=== PATIENT | female | born 2005 | race Caucasian/White ===

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

== ENCOUNTER 2025-01-20 15:40 | Emergency (ER) | payer OTHER, SELFPAY ==
[2025-01-20 15:40] VITALS: BP 108/56; PULSE 86; RESP 16; TEMP 36.3; O2SAT 98
--- OUTSIDE RECORDS SUMMARY | 2025-01-20 15:49 | XMS_ITS | Clinical Summary ---
Author Organization [facility] Address [address] [place] [id number] Care Team Providers Care Eyeglass Frame Truer Name Role Phone New Referring, Provider Primary Care Provider Un available Allergies Active Allergy Reactions Criticality Noted Date Comments Clindamycin Unknown 09/21/2021 Penicillins Swelling Medium 02/21/2022 Medications No known medications Active Problems Problem Noted Date Diagnosed Date Rupture of anterior cruciate ligament of left knee, initial encounter 10/27/2020 Patellar subluxation, left, initial encounter Family History Medical History Relation Comments No Known Problems Father No Known Problems Maternal Grandfather Cancer Maternal Grandmother No Known Problems Paternal Grandfather No Known Problems Paternal Grandmother Heart Disease Sister Relation Status Comments Father Alive Maternal Grandfather Maternal Grandmother Alive Mother Alive Paternal Grandfather Paternal Grandmother Sister Social History Tobacco Use Types Packs/Day Years Used Date Smoking Tobacco: Never Smokeless Tobacco: Never Alcohol Use Standard Drinks/Week Comments Never 0 (1 standard drink = 0.6 oz pur e alcohol) AUDIT-C Answer Date Recorded Q1: How often do you have a drink containing alc ohol? Never 10/27/2020 Average Number of Drinks Not on file 021 Frequency of Binge Drinking Not on file 10/07 Comments No Sex and Gender Information Value Date Recorded Sex Assigned at Not on file Legal Sex Female 10:28 AM CDT Gender Identity Not on file Sexual Orientation Not on file Last Filed Vital Signs Vital Sign Reading Time Taken Comments Blood Pressure 99/64 12/13/2022 4:50 AM CDT Pulse 72 12/13/2022 2:19 AM CDT Temperature 36.7 C (98 F) 12/13/2022 1:18 AM CDT Respiratory Rate 16 12/13/2022 1:18 AM CDT Oxygen Saturation 99% 12/13/2022 4:50 AM CDT Inhaled Oxygen Concentration - - Weight 63.3 kg (139 lb 8.8 oz) 12/13/2022 1:18 A M CDT Height 152.4 cm (5') 12/13/2022 1:18 AM CDT Body Mass Index 27.25 12/13/2022 1:18 AM CDT Plan of Treatment Health Maintenance Due Date Last Done Comments Annual Physical 2007 DTaP, Tdap and Td Vaccines (5 - Tdap) 2015 06/26/2007, 02/27/2006, 12/07/2005, Additional history exists HPV Vaccines (1 - 3-dose series) 2019 Meningococcal B Vaccine (1 of 2 - Standard) 2020 Hepatitis C 2022 Chlamydia Screening Females ages 16-24 12/14/2023 12/13/2022, 09/21/2021 COVID-19 Vaccine ( season) 2024 Hepatitis B Vaccines Completed 06/26/2007, 02/27/2006, 12/07/2005, Additional history exists Meningococcal Vaccine Aged Out 02/14/2016 No yohana vi eligible based on patient's age to complete this topic Pneumococcal Vaccine: Pediatrics (0 to 5 Years) and At-Risk Patients (6 to 49 Years) Aged Out No longer eligible based on patient's age to complete this topic RSV Immunizations Under 20 Months Aged Out No longer eligible based on patient's age to complete this topic Procedures Procedure Name Priority Date/Time Associated Diagnosis Comments CHLAMYDIA GC RNA Nurse Collected Priority 12/13/2022 2:50 AM CDT from Last 3 Months or Most Recently Relevant to Health Maintenance Results * CHLAMYDIA GC RNA (12/13/2022 2:50 AM CDT) SPECIMEN CERVIX 12/13/2022 2:51 AM CDT [facility] CHLAMYDIA RNA TMA NEGATIVE NEGATIVE 023 1:23 PM CDT [facility] Comment:PERFORMED BY NUCLEIC ACID AMPLIFICATION N.GONORRHOEAE RNA TMA NEGATIVE NEGATIVE 12/13/2022 1:23 PM CDT [facility] Comment:PERFORMED BY NUCLEIC ACID AMPLIFICATION CERVIX UTERI STRUCTURE / Unknown 12/13/2022 2:50 AM CDT Negin Dominguez NP MICROBIOLOGY - GENERAL ORDERABL ES Final Result [facility] [address] [place] [address], [facility] [address] [place] [address], [id number] from Last 3 Months or Most Recently Relevant to Health Maintenance Insurance Care Teams Eyeglass Frame Truer Relationship Specialty Start Date End Date New Referring, Provider PCP - General UNKNOWN PHYSICIAN SPECIALTY 12/13/22
--- OUTSIDE RECORDS SUMMARY | 2025-01-20 16:26 | XMS_ITS | Clinical Summary ---
Author Organization [facility] Address [address] [place] [id number] Care Team Providers Care Piano Maker Name Role Phone New Referring, Provider Primary [...] CDT) SPECIMEN CERVIX 12/13/2022 2:51 AM CDT [facility] CHLAMYDIA RNA TMA NEGATIVE NEGATIVE 023 1:23 PM CDT [facility] Comment:PERFORMED BY NUCLEIC ACID AMPLIFICATION N.GONORRHOEAE RNA TMA NEGATIVE NEGATIVE 12/13/2022 1:23 PM CDT [facility] Comment:PERFORMED BY NUCLEIC ACID AMPLIFICATION CERVIX UTERI STRUCTURE / Unknown 12/13/2022 2:50 AM CDT Negin Dominguez NP MICROBIOLOGY - GENERAL ORDERABL ES Final Result [facility] [address] [place] [address], [facility] [address] [place] [address], [id number] from Last 3 Months or Most Recently Relevant to Health Maintenance Insurance Care Teams Piano Maker Relationship Specialty Start Date End Date New Referring, Provider PCP - General UNKNOWN PHYSICIAN SPECIALTY 12/13/22
[2025-01-20 16:50] VITALS: BP 116/62; PULSE 84; RESP 18; O2SAT 99
--- NOTE | 2025-01-20 17:09 | ED.FEMALEGU ---
HPI - Female Genitourinary General Chief complaint: Urogenital-Female Stated complaint: recurrent UTIs, abdominal and back pain Time Seen by Provider: 01/20/25 16:10 Source: patient Mode of arrival: ambulatory Limitations: no limitations History of Present Illness HPI Narrative: 19-year-old female, , LMP 3 weeks ago presents to the ED with one-week history of -- pelvic pain. the patient is unable to describe the location complains deep pelvic pain. -- Dyspareunia -- white vaginal discharge no fever or chills. No dysuria or hematuria. The patient was diagnosed with urinary tract infection 3 weeks ago for which she received nitrofurantoin. One week ago she developed the above symptoms for which she was prescribed Flagyl. She has taken the Flagyl and her symptoms have not resolved. No prior history of sexually transmitted disease she is for 3 years and has a single partner. MD elicited complaint: pelvic pain Onset (ago): week(s) ( 1 week) Location of symptoms: pelvis Severity: moderate Female Urogenital Radiation: Non-Radiating Quality of pain: aching Consistency: intermittent Vaginal discharge: white Vaginal bleeding: none Exacerbating factors: none Relieving factors: none Associated symptoms: denies other symptoms Treatment prior to arrival: other ( Flagyl) Sexual activity: Yes Patient : No Related Data Home Medications ?Medication ?Instructions ?Recorded ?Confirmed ?Last Taken ?Type vitamins-iron fumarate 65 1 tablet PO DAILY 02/20/23 07/02/23 05/26/23 History mg iron-folic acid 1 mg tablet Allergies Allergy/AdvReac Type Severity Reaction Status Date / Time clindamycin Allergy Rash Verified 01/20/25 16:02 Review of Systems Review of Systems: All systems reviewed & are unremarkable except as noted in HPI and below PMFSH Past Medical History Medical History Vaginal discharge Suppression of menses Surgical History Surgical History History of dilation and curettage 2021 Family History Family History Grandparent Breast cancer AD (Alzheimer's disease) Sibling Jocy de Mata syndrome Social History Social History Smoking status: Former smoker Tobacco type: e-cigarettes/vaping Alcohol intake: never Substance use: never Lack of Transportation: No Lack of Food: Never True Current Housing: I Have Housing Concerned About Future Housing: No Difficulty Paying Gas/Electric Bills: No Difficulty Paying for Meds: No Currently Unemployed: No Education: High School Diploma/GED Difficulty w/ Childcare or Family Care: No Living arrangements: with family Occupation/Education: occupation 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 Const: General: healthy appearing and no acute distress Nutritional Appearance: well nourished Orientation/consciousness: patient oriented x3 Limitations: no limitations HENMT: Head: normal to inspection Ears: external ears normal Face/Nose/Sinus: Normal external nose present Face and sinus: normal facial exam Mouth: Yes Normal oral and palatal mucosa present Throat: posterior oropharynx normal Eyes: Conjunctivae: conjunctivae normal Pupils: Equal, round and reactive pupils present EOM: EOMs intact bilaterally Direct Ophthalmoscopy: no photophobia Neck: Neck: normal visual inspection, no lymphadenopathy and no meningeal signs Chest: Chest palpation & inspection: normal inspection of the chest Resp: Effort & Inspection: normal respiratory effort Auscultation: clear to auscultation bilaterally Cardio: Rate: regular rate Rhythm: regular rhythm GI: GI Palp: Yes Soft to palpation Auscultation: normal bowel sounds Other: No tenderness/ rigidity /rebound. : General: Yes no CVA tenderness Back/Spine/Pelvis: Back: no CVA tenderness Skin: General skin exam: normal color Rashes: no rashes Wounds: no wounds Neuro: General: patient oriented x3, moves all extremities, no meningeal signs, no focal motor deficits and CN's II-XI intact bilaterally Cranial nerves: Yes Nystagmus not present Speech: normal speech Gait exam (Neuro): Normal gait present Extrem: General: normal to inspection and no clubbing, cyanosis or edema Psych: Appearance: grossly normal Mental Status: mental status grossly normal Affect: normal affect Attitude: cooperative Course Course Emergency Course: Pelvic pain-- Clinical examination unremarkable. Blood work normal counts. Patient's UA is Negative. Sent the urine for chlamydia and GC. Vaginal Discharge-- patient denied any extremity hiatal relationship. Patient received treatment with Flagyl for vaginosis. Would give her a dose of Diflucan fungal vaginitis. Send the urine for GC and chlamydia. Have the patient follow-up with primary care physician. Recent UTI- UA is noted to be negative without any evidence of infection. Vital Signs Vital signs: Vital Signs Temperature 36.3 C L 01/20/25 15:40 Pulse Rate 86 01/20/25 15:40 Respiratory Rate 16 01/20/25 15:40 Blood Pressure 108/56 L 01/20/25 15:40 Pulse Oximetry 98 01/20/25 15:40 Oxygen Delivery Room Air 01/20/25 15:40 Temperature 36.3 C L 01/20/25 15:40 Pulse Rate 86 01/20/25 15:40 Respiratory Rate 16 01/20/25 15:40 Blood Pressure 108/56 L 01/20/25 15:40 Pulse Oximetry 98 01/20/25 15:40 Oxygen Delivery Room Air 01/20/25 15:40 MDM - Female Genitourinary MDM Narrative Medical decision making narrative: pelvic pain vaginitis Differential Diagnosis Differential diagnosis: Likely vaginitis Medical Records Attestation: I reviewed the patient's medical records. Lab Data Attestation: I reviewed the patient's lab results. 01/20/25 17:35 01/20/25 17:35 Labs: Lab Results 01/20/25 01/20/25 Range/Units 15:48 17:35 WBC 9.5 (4.8-10.8) K/mm3 RBC 4.35 (4.20-5.40) M/mm3 Hgb 13.2 (12.0-15.0) g/dL Hct 40.4 (35.0-49.0) % MCV 92.9 (78.0-102.0) fL MCH 30.3 (27.0-31.0) pg MCHC 32.7 (32-36) g/dL RDW 12.4 (11.6-14.4) % Plt Count 324 (150-420) K/mm3 MPV 9.8 (9.2-11.8) fl Immature Gran % (Auto) 0.3 H (0.0-0.0) % Neut % (Auto) 57.5 (50.0-70.0) % Lymph % (Auto) 26.7 (18.0-42.0) % [place] % (Auto) 13.0 H (2.0-11.0) % Eos % (Auto) 1.2 (1.0-6.0) % Baso % (Auto) 1.3 H (0.0-1.0) % Lymph # (Auto) 2.53 (1.10-4.50) K/mm3 [place] # (Auto) 1.23 H (0.10-0.90) K/mm3 Eos # (Auto) 0.11 (0.02-0.50) K/mm3 Baso # (Auto) 0.12 H (0.00-0.10) K/mm3 Abs Immat Gran (auto) 0.03 H (0.00-0.00) K/mm3 Absolute Neuts (auto) 5.45 (1.70-7.20) K/mm3 Absolute Nucleated RBC 0.00 (0.00-0.00) K/mm3 Nucleated RBC % 0.0 (0-0.0) % Sodium 141 (137-145) mmol/L Potassium 4.1 (3.4-5.0) mmol/L Chloride 106 (98-107) mmol/L Carbon Dioxide 27 (22-30) mmol/L Anion Gap 8 (4-12) mmol/L BUN 14 D (7-17) mg/dL Creatinine 0.69 L (0.7-1.0) mg/dL Estim Creat Clear Calc 94 ml/min Estimated GFR > 60 (59 - ) Glucose 89 (65-110) mg/dL Calculated Osmolality 291 (285-295) mOsm/kg Lactic Acid 0.9 (0.4-2.0) mmol/L Calcium 9.0 (8.4-10.2) mg/dL Total Bilirubin 0.4 (0.2-1.3) mg/dL AST 25 (14-36) U/L ALT 25 (6-35) U/L Alkaline Phosphatase 65 (38-126) U/L Total Protein 7.4 (6.3-8.2) g/dL Albumin 4.4 (3.5-5.1) g/dL Lipase 42 (23-300) U/L Urine Color Light yellow (Yellow) Urine Appearance Clear (Clear) Urine pH 6.0 (5.0-8.0) Ur Specific [place] <= 1.005 L (1.010-1.020) Urine Protein Negative (Negative) Urine Glucose (UA) Negative (Negative) Urine Ketones Negative (Negative) Ur Blood (Man) Negative (Negative) Urine Nitrate Negative (Negative) Urine Bilirubin Negative (Negative) Urine Urobilinogen 0.2 (0.2-1.0) mg/dL Leukocyte Esterase Rfl Negative (Negative) TERRY/UL Urine Test Negative C. trachomatis (PCR) Pending N. gonorrhoeae (PCR) Pending Discharge Plan Discharge Clinical Impression: Pelvic pain Vaginitis Qualifiers: Chronicity: acute Qualified Code(s): N76.0 - Acute vaginitis Patient Disposition: Home Condition: Stable Instructions: Antibiotic Form, Pelvic Pain (ED) Patient Language: Albanian Prescriptions: New fluconazole 150 mg tablet 150 mg PO DAILY Qty: 1 0RF Rx Instructions: administer on day 1 of therapy No Action vit-iron fum-folic ac 65 mg iron- 1 mg tablet 1 tablet PO DAILY docusate sodium 100 mg Capsule 100 mg PO BID PRN (Reason: Constipation) Qty: 120 0RF Follow-up/Referrals: Corina,Alysha Rick MD [Primary Care Provider] - Time of Disposition: 18:01
[2025-01-20 17:21] LABS: Add Urine Microscopic? NO; Appearance Urine Clear (Clear); Glucose Urine UA Negative (Negative); Leukocyte Esterase Ur Negative LEU/UL (Negative); Nitrate Urine Negative (Negative); Specific Grav Ur <= 1.005 (1.010-1.020)
[2025-01-20 17:23] LABS: Pregnancy On Board Control Positive
[2025-01-20 17:39] LABS: Hematocrit 40.4 % (35.0-49.0); Hemoglobin 13.2 g/dL (12.0-15.0); Immature Granulocyte Percent A 0.3 % (0.0-0.0); Lymphocytes Absolute Auto 2.53 K/mm3 (1.10-4.50); Mean Corpuscular HGB Conc 32.7 g/dL (32-36); Mean Corpuscular Hemoglobin 30.3 pg (27.0-31.0); Mean Corpuscular Volume 92.9 fL (78.0-102.0); Nucleated Red Blood Cells Absolute Auto 0.00 K/mm3 (0.00-0.00); Nucleated Red Blood Cells Perc 0.0 % (0-0.0); Platelet Count Result 324 K/mm3 (150-420); Red Blood Count 4.35 M/mm3 (4.20-5.40); White Blood Count 9.5 K/mm3 (4.8-10.8)
[2025-01-20 17:50] VITALS: BP 121/70; PULSE 70; RESP 16; TEMP 37; O2SAT 100
[2025-01-20 17:52] LABS: Alanine Aminotransferase 25 U/L (6-35); Albumin Level 4.4 g/dL (3.5-5.1); Alkaline Phosphatase 65 U/L (38-126); Anion Gap 8 mmol/L (4-12); Aspartate Amino Transferase 25 U/L (14-36); Bilirubin,Total 0.4 mg/dL (0.2-1.3); Blood Urea Nitrogen 14 mg/dL (7-17); Calcium 9.0 mg/dL (8.4-10.2); Carbon Dioxide 27 mmol/L (22-30); Chloride 106 mmol/L (98-107); Estimated CRCL calculation 94 ml/min; Estimated Glomerular Filt Rate > 60; Glucose 89 mg/dL (65-110); Lipase 42 U/L (23-300); Osmolality Calculated 291 mOsm/kg (285-295); Potassium 4.1 mmol/L (3.4-5.0); Sodium 141 mmol/L (137-145); Total Protein 7.4 g/dL (6.3-8.2)
== END 2025-01-20 18:10 | disposition home or self-care (01) ==
PROVIDERS: Emergency Provider Internal Medicine Critical Care Medicine; PCP Family Medicine
DX: N76.0 Acute vaginitis (principal); Z87.891 Personal history of nicotine dependence; Z11.3 Encounter for screening for infections with a predominantly sexual mode of transmission
CPT/HCPCS: 36415; 80053; 81003; 81025; 83605; 83690; 85025; 87491; 87591; 99283